=== PATIENT | female | born 1990 | race American Indian/Alaskan Native ===

== ENCOUNTER 2017-10-17 03:27 | Outpatient (CLI) | payer MEDICAID ==
[2017-10-17 03:58] VITALS: BP 119/68
[2017-10-17] MEDS ORDERED: LACTATED RINGERS 1,000 ML IV ONE (04:00)
[2017-10-17 04:33] LABS: Bilirubin,Urine NEG (Negative); Blood,Urine NEG (Negative); Color,Urine Straw (Yellow); Mucus,Urine FEW /HPF; Protein,Urine <15 mg/dL mg/dL (Negative)
[2017-10-17] MEDS ORDERED: VALTREX PO ONE (05:01)
== END 2017-10-17 05:22 | disposition home or self-care (01) ==
LOC: TRG 03:27
PROVIDERS: ATTEND Obstetrics & Gynecology
DX: O47.02 False labor before 37 completed weeks of gestation, second trimester (principal); Z3A.28 28 weeks gestation of pregnancy
CPT/HCPCS: 81001; 96360; J7120